=== PATIENT | female | born 1935 | race Caucasian/White ===

== ENCOUNTER 2016-08-07 14:13 | Inpatient (IN) | payer MEDICAID, MEDICARE ==
[~2016-08-07] VITALS: Ht 157.5 cm; Wt 62.3 kg
[2016-08-07 16:54] LABS: CALCIUM 8.4 mg/dL (8.5-10.1); CARBON DIOXIDE 26.1 mmol/L (21-32); CHLORIDE SERUM 105 mmol/L (98-107); CREATININE SERUM 1.3 mg/dL (0.6-1.0); GLUCOSE SERUM 143 mg/dL (74-106); POTASSIUM SERUM 4.3 mmol/L (3.5-5.1); SODIUM SERUM 140 mmol/L (136-145)
[2016-08-07 17:00] LABS: ALKALINE PHOSPHATASE 108 U/L (46-116); ALT/SGPT 41 U/L (14-59); AST/SGOT 35 U/L (15-37); BILIRUBIN TOTAL 0.8 mg/dL (0.20-1.00); TOTAL PROTEIN, SERUM 6.8 g/dL (6.4-8.2)
[2016-08-07 17:01] LABS: PLATELET COUNT 148 x10^3mcL (130-400)
[2016-08-07 17:02] LABS: ALBUMIN 3.1 g/dL (3.4-5.0)
[2016-08-07] MEDS ORDERED: OLANZAPINE5 M2 PO (18:47)
[2016-08-07] MEDS ORDERED: PANTOPRAZOLE SO40 M1 PO (18:48)
[2016-08-07] MEDS ORDERED: XARELTO20 M1 PO (18:48)
[2016-08-07] MEDS ORDERED: METOPROLOL TART25 M1 PO (18:48)
[2016-08-07] MEDS ORDERED: DIGOXIN0.25 M1 PO (18:49)
[2016-08-07] MEDS ORDERED: PRAVASTATIN SOD10 M1 PO (18:49)
[2016-08-07 19:18] LABS: FREE T4 1.15 ng/dL (0.76-1.46); FREE THYROXINE INDEX 2.4 ug/dL (1.4-4.5); T3 TOTAL 0.74 ng/mL; T4(THYROXINE) 6.2 ug/dL (4.7-13.3)
[2016-08-07 19:41] LABS: CHOLESTEROL/HDL RATIO 2.3
[2016-08-07 19:53] VITALS: BP 150/88
[2016-08-08 02:22] LABS: microscopic required? YES; urine erythrocyte TRACE (NEGATIVE)
[2016-08-08 02:34] LABS: AMPHETAMINE QUAL UR NONE DETECTED (NEG <=1000)
[2016-08-08 06:09] LABS: BASOPHIL % 0.9 % (0-2); PLATELET COUNT 159 x10^3mcL (130-400)
[2016-08-08 06:26] LABS: CALCIUM 8.6 mg/dL (8.5-10.1); CARBON DIOXIDE 27.5 mmol/L (21-32); CHLORIDE SERUM 106 mmol/L (98-107); CREATININE SERUM 1.3 mg/dL (0.6-1.0); GLUCOSE SERUM 118 mg/dL (74-106); PHOSPHOROUS 3.3 mg/dL (2.5-4.9); SODIUM SERUM 141 mmol/L (136-145)
[2016-08-08 06:33] LABS: RED CELL DISTRIBUTION WIDTH 20.4 % (11.5-14.5)
[2016-08-08 06:34] VITALS: BP 142/82
[2016-08-08 10:52] VITALS: BP 121/69
[2016-08-08 17:22] VITALS: BP 124/70
[2016-08-08 21:52] VITALS: BP 117/68
[2016-08-09 07:15] LABS: CALCIUM 8.7 mg/dL (8.5-10.1); CARBON DIOXIDE 26.6 mmol/L (21-32); CHLORIDE SERUM 104 mmol/L (98-107); CREATININE SERUM 1.6 mg/dL (0.6-1.0); GLUCOSE SERUM 183 mg/dL (74-106); MAGNESIUM 1.9 mg/dL (1.8-2.4); POTASSIUM SERUM 4.7 mmol/L (3.5-5.1); SODIUM SERUM 142 mmol/L (136-145)
[2016-08-09 07:21] LABS: BASOPHIL % 0.9 % (0-2); PLATELET COUNT 205 x10^3mcL (130-400)
[2016-08-09 07:24] VITALS: BP 112/76
[2016-08-09 07:34] LABS: RED CELL DISTRIBUTION WIDTH 20.4 % (11.5-14.5)
[2016-08-09 07:35] LABS: rbc morphology (normal/abnorm) ABNORMAL (NORMAL)
[2016-08-09 09:50] VITALS: BP 106/67
[2016-08-09 13:55] VITALS: BP 98/53
[2016-08-09 18:15] VITALS: BP 121/86
[2016-08-09 19:30] VITALS: BP 100/65
[2016-08-09 21:37] VITALS: BP 115/74
[2016-08-10] VITALS (7 sets, daily range): BP systolic 88–139; BP diastolic 58–82
[2016-08-10 05:33] LABS: BASOPHIL % 1.2 % (0-2); PLATELET COUNT 274 x10^3mcL (130-400)
[2016-08-10 05:37] LABS: RED CELL DISTRIBUTION WIDTH 19.9 % (11.5-14.5)
[2016-08-10 05:50] LABS: CALCIUM 9.2 mg/dL (8.5-10.1); CARBON DIOXIDE 29.4 mmol/L (21-32); CHLORIDE SERUM 103 mmol/L (98-107); CREATININE SERUM 1.5 mg/dL (0.6-1.0); GLUCOSE SERUM 131 mg/dL (74-106); PHOSPHOROUS 3.3 mg/dL (2.5-4.9); POTASSIUM SERUM 3.9 mmol/L (3.5-5.1); SODIUM SERUM 142 mmol/L (136-145)
[2016-08-10] MEDS ORDERED: DIG125 PO (15:10)
[2016-08-10] MEDS ORDERED: ZES5 PO (15:12)
[2016-08-11 05:53] VITALS: BP 108/60
[2016-08-11 06:22] LABS: PLATELET COUNT 229 x10^3mcL (130-400)
[2016-08-11 06:32] LABS: CALCIUM 8.1 mg/dL (8.5-10.1); CARBON DIOXIDE 27.9 mmol/L (21-32); CHLORIDE SERUM 105 mmol/L (98-107); CREATININE SERUM 1.5 mg/dL (0.6-1.0); GLUCOSE SERUM 122 mg/dL (74-106); PHOSPHOROUS 3.5 mg/dL (2.5-4.9); POTASSIUM SERUM 3.2 mmol/L (3.5-5.1); SODIUM SERUM 140 mmol/L (136-145)
[2016-08-11 06:37] LABS: RED CELL DISTRIBUTION WIDTH 19.6 % (11.5-14.5)
[2016-08-11 08:55] VITALS: BP 90/55
[2016-08-11 10:20] VITALS: BP 95/54
[2016-08-11 11:42] LABS: ATYPICAL LYMPH 1 %; BAND NEUTROPHIL 1 % (0-10); BASOPHIL 0 % (0-2); MONOCYTE 9 % (0-7); SEGMENTED NEUTROPHILS 75 % (37-75)
[2016-08-11 11:43] LABS: PLATELET MORPHOLOGY PLATELETS DECREASED; rbc morphology (normal/abnorm) ABNORMAL (NORMAL)
[2016-08-11 14:35] VITALS: BP 104/72
[2016-08-11 19:06] VITALS: BP 108/63
[2016-08-11 21:11] VITALS: BP 107/65
[2016-08-12 05:32] VITALS: BP 137/98
[2016-08-12 07:03] LABS: BASOPHIL % 0.4 % (0-2); PLATELET COUNT 275 x10^3mcL (130-400)
[2016-08-12 07:05] LABS: RED CELL DISTRIBUTION WIDTH 19.3 % (11.5-14.5)
[2016-08-12 07:15] LABS: CALCIUM 8.4 mg/dL (8.5-10.1); CARBON DIOXIDE 26.9 mmol/L (21-32); CHLORIDE SERUM 104 mmol/L (98-107); CREATININE SERUM 1.2 mg/dL (0.6-1.0); GLUCOSE SERUM 145 mg/dL (74-106); MAGNESIUM 2.1 mg/dL (1.8-2.4); PHOSPHOROUS 2.7 mg/dL (2.5-4.9); POTASSIUM SERUM 4.4 mmol/L (3.5-5.1); SODIUM SERUM 139 mmol/L (136-145)
[2016-08-12 09:28] VITALS: BP 135/97
[2016-08-12 14:31] VITALS: BP 129/78
[2016-08-12 18:20] VITALS: BP 102/61
== END 2016-08-12 19:30 | disposition home or self-care (01) | DRG 194 ==
LOC: ED 14:13 → DU 18:11
PROVIDERS: Emergency Medicine; Family Medicine; ADMIT Family Medicine
DX: I11.0 Hypertensive heart disease with heart failure (principal); N17.0 Acute kidney failure with tubular necrosis; I50.43 Acute on chronic combined systolic (congestive) and diastolic (congestive) heart failure; K21.9 Gastro-esophageal reflux disease without esophagitis; I48.2 Chronic atrial fibrillation; E11.51 Type 2 diabetes mellitus with diabetic peripheral angiopathy without gangrene; E87.6 Hypokalemia; D64.9 Anemia, unspecified; I49.9 Cardiac arrhythmia, unspecified; D68.69 Other thrombophilia; E78.5 Hyperlipidemia, unspecified; E02 Subclinical iodine-deficiency hypothyroidism; I25.2 Old myocardial infarction; Z68.25 Body mass index [BMI] 25.0-25.9, adult; Z96.643 Presence of artificial hip joint, bilateral; Z79.01 Long term (current) use of anticoagulants; Z86.73 Personal history of transient ischemic attack (TIA), and cerebral infarction without residual deficits
CPT/HCPCS: 36600; 80307; 83880; 84439; 87804; 97110-GP; 97116-GP; 97530-GP; A9500; C9113; J1815; J1940; J2785; J3490; J7030; J7040; Q0092